=== PATIENT | male | born 1940 | race Caucasian/White ===

== ENCOUNTER 2020-10-20 12:28 | Emergency (ER) | payer MEDICARE, OTHER ==
[~2020-10-20] VITALS: Ht 177.8 cm; Wt 100.4 kg
[~2020-10-20 12:28] MED LIST: APIX5TAB PO
--- NOTE | 2020-10-20 12:41 | NUR ---
daughter : Amy [phone]
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
--- NOTE | 2020-10-20 12:56 | NUR ---
PER EMS END TITAL CO2 WAS 15 FINE GRADER. ERP UPDATED.
--- NOTE | 2020-10-20 13:18 | NUR ---
RAD IN ROOM.
--- NOTE | 2020-10-20 13:24 | NUR ---
LAB IN ROOM FO BLOOD CULTURES.
[2020-10-20 13:33] LABS: BASOPHILS % (AUTO) 0 % (0-1); EOSINOPHILS % (AUTO) 1 % (1-7); LYMPHOCYTES % (AUTO) 9 % (22-44); MEAN CORPUSCULAR HEMOGLOBIN 29.4 pg (27.5-34.5); MEAN CORPUSCULAR HGB CONC 33.3 g/dL (33.2-36.2); MEAN PLATELET VOLUME 9.2 fL (7.4-10.4); MONOCYTES % (AUTO) 7 % (2-9); NEUTROPHILS % (AUTO) 82 % (42-75); PLATELET COUNT 256 x10^3/uL (130-400); RED BLOOD COUNT 5.32 x10^6/uL (4.38-5.82); RED CELL DISTRIBUTION WIDTH 13.5 % (9.4-14.8)
[2020-10-20 13:37] LABS: MD NO
[2020-10-20 13:41] LABS: ALANINE AMINOTRANSFERASE 22 U/L (12-78); ALBUMIN 3.6 g/dL (3.4-5.0); ANION GAP 9 mmol/L (5-15); CALCIUM 8.8 mg/dL (8.5-10.1); CHLORIDE 105 mmol/L (98-107); CREATININE 1.16 mg/dL (0.7-1.3)
[2020-10-20 13:45] LABS: ALKALINE PHOSPHATASE 125 U/L (45-117); BILIRUBIN,TOTAL 1.5 mg/dL (0.2-1.0); TOTAL PROTEIN 7.8 g/dL (6.4-8.2); TROPONIN I < 0.015 ng/mL (0.000-0.045)
--- NOTE | 2020-10-20 14:00 | NUR ---
US AT BEDSIDE.
[2020-10-20] MEDS ORDERED: CEFTRIAXONE PMX 1GM/50ML 50 ML IVPB ONE (15:00)
[2020-10-20] MEDS ORDERED: DOXYCYCLINE 100 MG in DEXTROSE 5% 250 ML IV SCH (15:00)
[2020-10-20] MEDS ORDERED: CEFTRIAXONE PMX 1GM/50ML 50 ML ONE (15:44)
--- NOTE | 2020-10-20 15:58 | NUR ---
PER [facility], PT MAINTAINED SAT 91-92% WHILE AMBULATING.
[2020-10-20 17:22] VITALS: BP 133/76
--- NOTE | 2020-10-20 17:29 | NUR ---
PT VERBALIZED UNDERSTANDING OF DC INSTRUCTIONS AND WHEN TO RETURN TO THE ED. PT AMBULATORY W/ A STEADY GAIT TO ED KONSTANTIN LEIJA PROVIDED BY PTS DAUGHTER VICTORINO. RESP EVEN AND UNLABORED, JESSE.
== END 2020-10-20 17:31 | disposition home or self-care (01) ==
LOC: ED 14:05
DX: A41.9 Sepsis, unspecified organism (principal); J18.1 Lobar pneumonia, unspecified organism; Z20.822 Contact with and (suspected) exposure to COVID-19; I82.432 Acute embolism and thrombosis of left popliteal vein; R00.0 Tachycardia, unspecified
CPT/HCPCS: 36415; 71045; 80053; 83605; 84145; 84484; 85025; 87040; 93005; 93971; 96365; 96367; 99285; J0696; J7060; U0003